=== PATIENT | male | born 1955 | race Caucasian/White ===

== ENCOUNTER 2017-03-28 10:03 | Emergency (ER) | payer OTHER ==
[~2017-03-28] VITALS: Ht 175.3 cm; Wt 140.0 kg
[~2017-03-28 10:03] MED LIST: COMPAZINE10 MG PO; DIFLUNISAL500 MG PO; NEURONTIN300 MG PO; NORTRIPTYLINE H10 MG PO; OMEPRAZOLE40 M1 PO; ZYLOPRIM100 MG PO
[2017-03-28 10:07] VITALS: BP 132/100
[2017-03-28] MEDS ORDERED: NAPROXEN500 MG PO (13:10)
[2017-03-28] MEDS ORDERED: FLEXERIL10 MG PO (13:10)
== END 2017-03-28 13:29 | disposition home or self-care (01) ==
LOC: EME 10:03
PROC: 2W3EX1Z Immobilization of Right Hand using Splint (ICD-10-PCS; principal; 2017-03-28)
DX: S16.1XXA Strain of muscle, fascia and tendon at neck level, initial encounter (principal); S80.11XA Contusion of right lower leg, initial encounter; T23.201A Burn of second degree of right hand, unspecified site, initial encounter; W22.11XA Striking against or struck by driver side automobile airbag, initial encounter; V43.52XA Car driver injured in collision with other type car in traffic accident, initial encounter; Y92.410 Unspecified street and highway as the place of occurrence of the external cause; M54.5 Low back pain; J44.9 Chronic obstructive pulmonary disease, unspecified; R73.03 Prediabetes; G62.9 Polyneuropathy, unspecified; M19.90 Unspecified osteoarthritis, unspecified site; Z87.891 Personal history of nicotine dependence
CPT/HCPCS: 72040; 72100; 73130; 73590; 99281; 99283; J1885